=== PATIENT | male | born 1975 | race Caucasian/White ===

== ENCOUNTER 2019-03-19 14:04 | Emergency (ER) | payer OTHER ==
--- NOTE | 2019-03-19 14:35 | RADIOLOGY REPORT (SQ) ---
EXAM DESCRIPTION: SHOULDER LEFT 2 OR MORE VIEWS COMPLETED DATE/TIME: 03/19/2019 2:25 pm REASON FOR STUDY: deformity COMPARISON: None. NUMBER OF VIEWS: Two views. TECHNIQUE: Internal rotation and Y view images acquired of the left shoulder. LIMITATIONS: None. FINDINGS: MINERALIZATION: Normal. BONES: No acute fracture. No worrisome bone lesions. JOINTS: Anterior dislocation of the left glenohumeral joint. VISUALIZED LUNGS AND RIBS: No pneumothorax. No rib fracture. SOFT TISSUES: No radiopaque foreign body. OTHER: No other significant finding. IMPRESSION: Anterior dislocation of the left glenohumeral joint. TECHNICAL DOCUMENTATION: JOB ID: [id number] [email or web address]- All Rights Reserved Reading location - IP/workstation name: [email or web address]
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
[2019-03-19] MEDS ORDERED: PROPOFOL INJ 200 MG/20 ML VIAL IV ONE (15:33)
[2019-03-19] MEDS ORDERED: FENTANYL CITRATE INJ/PF 100 MCG/2 ML AMPUL IV ONE ×2 (15:35→16:14)
--- NOTE | 2019-03-19 16:50 | RADIOLOGY REPORT (SQ) ---
EXAM DESCRIPTION: SHOULDER LEFT 1 VIEW COMPLETED DATE/TIME: 03/19/2019 4:36 pm REASON FOR STUDY: er 8 l shoulder post reduction COMPARISON: 03/19/2019, 1427 hours NUMBER OF VIEWS: AP view TECHNIQUE: AP view images acquired of the left shoulder. LIMITATIONS: None. FINDINGS: Post closed reduction of the left shoulder anterior glenohumeral dislocation. Grossly nor mal alignment on the AP view. No acute fracture IMPRESSION: Post closed reduction of the left shoulder anterior glenohumeral dislocation. Grossly n ormal alignment on the AP view. No acute fracture TECHNICAL DOCUMENTATION: JOB ID: [id number] [employer] All Rights Reserved Reading location - IP/workstation name: [email or web address]
[2019-03-19 18:10] VITALS: BP 119/75
== END 2019-03-19 18:10 | disposition home or self-care (01) ==
LOC: ER 14:04
DX: S43.005A Unspecified dislocation of left shoulder joint, initial encounter (principal); M25.512 Pain in left shoulder; M79.10 Myalgia, unspecified site; W16.132A Fall into natural body of water striking side causing other injury, initial encounter
CPT/HCPCS: 99283; 99152; 73020; 73030; L3650; J3010; J2704